=== PATIENT | male | born 1950 | race Caucasian/White ===

== ENCOUNTER 2020-03-11 10:49 | Inpatient (IN) ==
[2020-03-11] MEDS ORDERED: Naloxone 0.4 MG/ML INJ IVP PRN (13:06)
[2020-03-11] MEDS ORDERED: Ondansetron 4 MG/2 ML VIAL IVP PRN (13:06)
[2020-03-11] MEDS ORDERED: *HR* Phytonadione 5 MG TABLET PO ONE (14:25)
[2020-03-11] MEDS ORDERED: Dextrose Gel 15 GM/37.5 ML TUBE PO PRN ×2 (14:26)
[2020-03-11] MEDS ORDERED: *HR* Dextrose 50 % in Water (Vial) 50 ML VIAL IVP PRN (14:26)
[2020-03-11] MEDS ORDERED: D5% in Water 1,000 ML IVC PRN (14:26)
[2020-03-11] MEDS: *HR* Amiodarone 200 MG TABLET PO SCH (15:14)
[2020-03-11] MEDS: cefTRIAXone 1,000 MG in Water for inj. (sterile) 10 ML IVP SCH (15:14)
[2020-03-11] MEDS: Insulin LISPRO 300 UNITS/3 ML VIAL SUBQ SCH (18:22)
[2020-03-11] MEDS: Furosemide 40 MG/4 ML VIAL IVP SCH (20:24)
[2020-03-12 01:47] LABS: INR 4.1
[2020-03-12 01:49] LABS: Prothrombin Time 45.7 Seconds (9.4-12.1)
[2020-03-12 02:06] LABS: BUN/Creatinine Ratio 25 (6-26); Blood Urea Nitrogen 23 mg/dL (8-23); Calcium 8.2 mg/dL (8.6-10.3); Carbon Dioxide 38 mEq/L (23-29); Chloride 97 mEq/L (98-107); Glucose 80 mg/dL (70-105); Magnesium 2.2 mg/dL (1.6-2.6); Osmolality,Calculated 293 (280-300); Phosphorous 3.5 mg/dL (2.7-4.5); Potassium 4.5 mEq/L (3.5-5.1); Sodium 140 mEq/L (136-145); eGFR For African Americans > 60 (> 60); eGFR For Non-African Americans > 60 (> 60)
[2020-03-12 03:17] LABS: Basophils % 0.2 %; Eosinophils # 0.2 K/mcL (0.0-0.6); Eosinophils % 2.1 %; Hematocrit 44.8 % (37.5-50.1); Immature Granulocytes % 1.8 % (0-4); Lymphocytes # 0.6 K/mcL (0.6-4.6); Lymphocytes % 7.2 %; Mean Corpuscular HGB Conc 31.3 g/dL (31.6-35.5); Mean Corpuscular Volume 102.5 fL (83.0-100.0); Mean Platelet Volume 10.2 fL (9.4-12.4); Monocytes # 0.5 K/mcL (0.0-1.3); Monocytes % 6.2 %; Platelet Count 121 K/mcL (140-400); Red Blood Count 4.37 M/mcL (4.19-5.50); Red Cell Distribution Width 15.2 % (11.5-14.5); Segmented Neutrophils % 82.5 %; White Blood Count 8.5 K/mcL (4.3-11.1)
[2020-03-12] MEDS: Insulin LISPRO 300 UNITS/3 ML VIAL SUBQ SCH ×3 (08:06→17:01)
[2020-03-12] MEDS: *HR* Amiodarone 200 MG TABLET PO SCH (08:10)
[2020-03-12] MEDS: Furosemide 40 MG/4 ML VIAL IVP SCH ×2 (08:10→21:10)
[2020-03-12] MEDS: cefTRIAXone 1,000 MG in Water for inj. (sterile) 10 ML IVP SCH (08:11)
[2020-03-12] MEDS: lisinopriL 20 MG TABLET PO SCH (13:06)
[2020-03-12] MEDS: Levalbuterol Neb 0.63 MG/3 ML IH SCH ×2 (15:48→22:43)
[2020-03-12] MEDS: Famotidine 20 MG TABLET PO SCH (16:59)
[2020-03-12] MEDS ORDERED: Warfarin perPT PO PRN (18:00)
[2020-03-12] MEDS: Budesonide/Formoterol 160/4.5 1 PUFF INH IH SCH (22:43)
[2020-03-13] MEDS: Levalbuterol Neb 0.63 MG/3 ML IH SCH ×4 (03:17→22:30)
[2020-03-13 05:41] LABS: Basophils % 0.2 %; Red Cell Distribution Width 15.1 % (11.5-14.5)
[2020-03-13 05:43] LABS: Eosinophils # 0.1 K/mcL (0.0-0.6); Eosinophils % 1.6 %; Hematocrit 45.1 % (37.5-50.1); Hemoglobin 13.7 g/dL (12.9-16.9); Immature Granulocytes % 1.6 % (0-4); Immature Platelets 5.1 % (1.1-6.1); Lymphocytes # 0.5 K/mcL (0.6-4.6); Lymphocytes % 6.1 %; Mean Corpuscular HGB Conc 30.4 g/dL (31.6-35.5); Mean Corpuscular Hemoglobin 30.7 pg (28.0-33.3); Mean Corpuscular Volume 101.1 fL (83.0-100.0); Mean Platelet Volume 10.1 fL (9.4-12.4); Monocytes # 0.6 K/mcL (0.0-1.3); Monocytes % 6.6 %; Neutrophils # 7.3 K/mcL (1.6-8.9); Platelet Count 118 K/mcL (140-400); Red Blood Count 4.46 M/mcL (4.19-5.50); Segmented Neutrophils % 83.9 %; White Blood Count 8.7 K/mcL (4.3-11.1)
[2020-03-13 05:48] LABS: INR 1.6; Prothrombin Time 17.8 Seconds (9.4-12.1)
[2020-03-13 06:10] LABS: BUN/Creatinine Ratio 22 (6-26); Blood Urea Nitrogen 22 mg/dL (8-23); Calcium 8.4 mg/dL (8.6-10.3); Carbon Dioxide 40 mEq/L (23-29); Chloride 94 mEq/L (98-107); Glucose 167 mg/dL (70-105); Osmolality,Calculated 293 (280-300); Potassium 4.4 mEq/L (3.5-5.1); Sodium 138 mEq/L (136-145); eGFR For African Americans > 60 (> 60); eGFR For Non-African Americans > 60 (> 60)
[2020-03-13] MEDS: Furosemide 40 MG/4 ML VIAL IVP SCH ×2 (07:23→20:18)
[2020-03-13] MEDS: *HR* Amiodarone 200 MG TABLET PO SCH (07:25)
[2020-03-13] MEDS: lisinopriL 20 MG TABLET PO SCH (07:25)
[2020-03-13] MEDS: Insulin LISPRO 300 UNITS/3 ML VIAL SUBQ SCH ×3 (07:25→16:42)
[2020-03-13] MEDS: Famotidine 20 MG TABLET PO SCH ×2 (07:25→16:42)
[2020-03-13] MEDS: Aspirin 81 MG TAB.CHEW PO SCH (07:25)
[2020-03-13] MEDS: *HR* Enoxaparin 100 MG/ML SYRINGE SQ SCH ×2 (09:15→17:27)
[2020-03-13] MEDS: Tiotropium 10 INH DOSE IH SCH (10:17)
[2020-03-13] MEDS: Budesonide/Formoterol 160/4.5 1 PUFF INH IH SCH ×2 (10:18→22:30)
[2020-03-13] MEDS ORDERED: *HR* Warfarin 2.5 MG TABLET PO ONE (18:00)
[2020-03-14] MEDS: Levalbuterol Neb 0.63 MG/3 ML IH SCH ×4 (03:43→21:16)
[2020-03-14] MEDS: *HR* Enoxaparin 100 MG/ML SYRINGE SQ SCH ×2 (05:35→17:37)
[2020-03-14 05:46] LABS: Basophils % 0.3 %; Red Blood Count 4.52 M/mcL (4.19-5.50)
[2020-03-14 05:49] LABS: Eosinophils # 0.1 K/mcL (0.0-0.6); Eosinophils % 1.8 %; Hematocrit 45.9 % (37.5-50.1); Immature Granulocytes % 2.5 % (0-4); Immature Platelets 4.8 % (1.1-6.1); Lymphocytes # 0.6 K/mcL (0.6-4.6); Lymphocytes % 8.2 %; Mean Corpuscular HGB Conc 30.5 g/dL (31.6-35.5); Mean Corpuscular Volume 101.5 fL (83.0-100.0); Mean Platelet Volume 10.1 fL (9.4-12.4); Monocytes # 0.5 K/mcL (0.0-1.3); Monocytes % 6.8 %; Neutrophils # 5.7 K/mcL (1.6-8.9); Platelet Count 116 K/mcL (140-400); Red Cell Distribution Width 15.2 % (11.5-14.5); Segmented Neutrophils % 80.4 %; White Blood Count 7.1 K/mcL (4.3-11.1)
[2020-03-14 05:55] LABS: INR 1.5; Prothrombin Time 16.6 Seconds (9.4-12.1)
[2020-03-14 06:03] LABS: VBG HCO3 43 mEq/L (21-27); VBG PCO2 81 mmHg (41-51); VBG PH 7.33 pH Units (7.32-7.42); VBG PO2 39 mmHg (25-50)
[2020-03-14 06:13] LABS: BUN/Creatinine Ratio 17 (6-26); Blood Urea Nitrogen 17 mg/dL (8-23); Carbon Dioxide 42 mEq/L (23-29); Chloride 97 mEq/L (98-107); Glucose 146 mg/dL (70-105); Osmolality,Calculated 296 (280-300); Potassium 4.8 mEq/L (3.5-5.1); Sodium 141 mEq/L (136-145); eGFR For African Americans > 60 (> 60); eGFR For Non-African Americans > 60 (> 60)
[2020-03-14] MEDS: Insulin LISPRO 300 UNITS/3 ML VIAL SUBQ SCH ×3 (07:30→17:37)
[2020-03-14] MEDS: Aspirin 81 MG TAB.CHEW PO SCH (07:56)
[2020-03-14] MEDS: Famotidine 20 MG TABLET PO SCH ×2 (07:56→17:36)
[2020-03-14] MEDS: lisinopriL 20 MG TABLET PO SCH (07:56)
[2020-03-14] MEDS: *HR* Amiodarone 200 MG TABLET PO SCH (07:56)
[2020-03-14] MEDS: Furosemide 40 MG/4 ML VIAL IVP SCH ×2 (07:57→19:57)
[2020-03-14] MEDS: Budesonide/Formoterol 160/4.5 1 PUFF INH IH SCH ×2 (11:19→21:16)
[2020-03-14] MEDS: Tiotropium 10 INH DOSE IH SCH (11:20)
[2020-03-14] MEDS ORDERED: acetaZOLAMIDE 250 MG TABLET PO ONE (12:48)
[2020-03-14] MEDS ORDERED: *HR* Warfarin 2.5 MG TABLET PO ONE (18:00)
[2020-03-15 03:13] LABS: VBG HCO3 35 mEq/L (21-27); VBG PCO2 69 mmHg (41-51); VBG PH 7.31 pH Units (7.32-7.42); VBG PO2 52 mmHg (25-50)
[2020-03-15 03:17] LABS: Mean Corpuscular Hemoglobin 32.5 pg (28.0-33.3); Mean Corpuscular Volume 102.4 fL (83.0-100.0)
[2020-03-15 03:19] LABS: Hematocrit 43.5 % (37.5-50.1); Hemoglobin 13.8 g/dL (12.9-16.9); INR 1.6; Mean Corpuscular HGB Conc 31.7 g/dL (31.6-35.5); Prothrombin Time 18.7 Seconds (9.4-12.1); Red Blood Count 4.25 M/mcL (4.19-5.50); Red Cell Distribution Width 15.1 % (11.5-14.5); White Blood Count 6.4 K/mcL (4.3-11.1)
[2020-03-15 03:37] LABS: BUN/Creatinine Ratio 20 (6-26); Blood Urea Nitrogen 18 mg/dL (8-23); Calcium 8.3 mg/dL (8.6-10.3); Carbon Dioxide 36 mEq/L (23-29); Chloride 99 mEq/L (98-107); Glucose 208 mg/dL (70-105); Osmolality,Calculated 292 (280-300); Potassium 4.3 mEq/L (3.5-5.1); Sodium 137 mEq/L (136-145); eGFR For African Americans > 60 (> 60); eGFR For Non-African Americans > 60 (> 60)
[2020-03-15] MEDS: Levalbuterol Neb 0.63 MG/3 ML IH SCH ×4 (03:52→22:38)
[2020-03-15 04:22] LABS: ABG Base Excess 7 mEq/L (-2 to 3); ABG HCO3 36 mEq/L (21-27); ABG Oxygen Saturation 88 % (95-98); ABG PCO2 67 mmHg (35-45); ABG PH 7.34 pH Units (7.32-7.45); ABG PO2 60 mmHg (85-104); ABG TCO2 38 mEq/L (20-26)
[2020-03-15] MEDS: *HR* Enoxaparin 100 MG/ML SYRINGE SQ SCH ×2 (06:36→18:01)
[2020-03-15] MEDS: *HR* Amiodarone 200 MG TABLET PO SCH (08:07)
[2020-03-15] MEDS: Furosemide 40 MG/4 ML VIAL IVP SCH ×2 (08:07→21:02)
[2020-03-15] MEDS: lisinopriL 20 MG TABLET PO SCH (08:07)
[2020-03-15] MEDS: Famotidine 20 MG TABLET PO SCH ×2 (08:08→18:05)
[2020-03-15] MEDS: Aspirin 81 MG TAB.CHEW PO SCH (08:08)
[2020-03-15] MEDS: Insulin LISPRO 300 UNITS/3 ML VIAL SUBQ SCH ×3 (08:18→18:07)
[2020-03-15] MEDS: Budesonide/Formoterol 160/4.5 1 PUFF INH IH SCH ×2 (10:33→22:38)
[2020-03-15] MEDS: Tiotropium 10 INH DOSE IH SCH (10:34)
[2020-03-15] MEDS ORDERED: DiphenhydraMINE CREAM 28.4 GM TUBE TP PRN (18:00)
[2020-03-15] MEDS ORDERED: *HR* Warfarin 5 MG TABLET PO ONE (18:00)
[2020-03-16] MEDS: Levalbuterol Neb 0.63 MG/3 ML IH SCH ×4 (03:29→22:20)
[2020-03-16] MEDS: *HR* Enoxaparin 100 MG/ML SYRINGE SQ SCH ×2 (05:57→17:36)
[2020-03-16 06:00] LABS: Red Cell Distribution Width 15.3 % (11.5-14.5)
[2020-03-16 06:01] LABS: Hematocrit 44.9 % (37.5-50.1); Hemoglobin 13.4 g/dL (12.9-16.9); INR 2.1; Immature Platelets 3.9 % (1.1-6.1); Mean Corpuscular HGB Conc 29.8 g/dL (31.6-35.5); Mean Corpuscular Hemoglobin 30.9 pg (28.0-33.3); Mean Corpuscular Volume 103.7 fL (83.0-100.0); Mean Platelet Volume 10.2 fL (9.4-12.4); Prothrombin Time 23.6 Seconds (9.4-12.1); Red Blood Count 4.33 M/mcL (4.19-5.50); White Blood Count 6.7 K/mcL (4.3-11.1)
[2020-03-16 06:24] LABS: BUN/Creatinine Ratio 18 (6-26); Blood Urea Nitrogen 17 mg/dL (8-23); Calcium 8.5 mg/dL (8.6-10.3); Carbon Dioxide 34 mEq/L (23-29); Chloride 100 mEq/L (98-107); Glucose 171 mg/dL (70-105); Osmolality,Calculated 290 (280-300); Potassium 4.4 mEq/L (3.5-5.1); Sodium 137 mEq/L (136-145); eGFR For African Americans > 60 (> 60); eGFR For Non-African Americans > 60 (> 60)
[2020-03-16] MEDS: Tiotropium 10 INH DOSE IH SCH (09:07)
[2020-03-16] MEDS: Budesonide/Formoterol 160/4.5 1 PUFF INH IH SCH ×2 (09:07→22:20)
[2020-03-16] MEDS: *HR* Amiodarone 200 MG TABLET PO SCH (09:18)
[2020-03-16] MEDS: Furosemide 40 MG/4 ML VIAL IVP SCH ×2 (09:18→21:16)
[2020-03-16] MEDS: lisinopriL 20 MG TABLET PO SCH (09:19)
[2020-03-16] MEDS: Famotidine 20 MG TABLET PO SCH ×2 (09:19→17:36)
[2020-03-16] MEDS: Aspirin 81 MG TAB.CHEW PO SCH (09:19)
[2020-03-16] MEDS: Insulin LISPRO 300 UNITS/3 ML VIAL SUBQ SCH ×3 (09:26→17:36)
[2020-03-16] MEDS ORDERED: *HR* Warfarin 2.5 MG TABLET PO ONE (18:00)
[2020-03-17 02:23] LABS: Hematocrit 43.5 % (37.5-50.1); Hemoglobin 13.4 g/dL (12.9-16.9); INR 3.1; Mean Corpuscular HGB Conc 30.8 g/dL (31.6-35.5); Mean Corpuscular Hemoglobin 31.2 pg (28.0-33.3); Mean Corpuscular Volume 101.2 fL (83.0-100.0); Mean Platelet Volume 10.6 fL (9.4-12.4); Platelet Count 102 K/mcL (140-400); Prothrombin Time 34.9 Seconds (9.4-12.1); Red Cell Distribution Width 15.4 % (11.5-14.5)
[2020-03-17 02:36] LABS: BUN/Creatinine Ratio 19 (6-26); Blood Urea Nitrogen 27 mg/dL (8-23); Calcium 8.5 mg/dL (8.6-10.3); Carbon Dioxide 33 mEq/L (23-29); Chloride 99 mEq/L (98-107); Glucose 198 mg/dL (70-105); Osmolality,Calculated 295 (280-300); Potassium 4.2 mEq/L (3.5-5.1); Sodium 137 mEq/L (136-145); eGFR For African Americans > 60 (> 60); eGFR For Non-African Americans 51 (> 60)
[2020-03-17] MEDS: Levalbuterol Neb 0.63 MG/3 ML IH SCH ×4 (03:30→22:38)
[2020-03-17] MEDS: *HR* Enoxaparin 100 MG/ML SYRINGE SQ SCH (05:54)
[2020-03-17] MEDS: Furosemide 40 MG/4 ML VIAL IVP SCH (07:37)
[2020-03-17] MEDS: Aspirin 81 MG TAB.CHEW PO SCH (07:38)
[2020-03-17] MEDS: Famotidine 20 MG TABLET PO SCH ×2 (07:38→16:28)
[2020-03-17] MEDS: *HR* Amiodarone 200 MG TABLET PO SCH (07:38)
[2020-03-17] MEDS: lisinopriL 20 MG TABLET PO SCH (07:39)
[2020-03-17] MEDS: Insulin LISPRO 300 UNITS/3 ML VIAL SUBQ SCH ×3 (07:40→16:18)
[2020-03-17] MEDS: Tiotropium 10 INH DOSE IH SCH (10:26)
[2020-03-17] MEDS: Budesonide/Formoterol 160/4.5 1 PUFF INH IH SCH ×2 (10:27→22:38)
[2020-03-17] MEDS ORDERED: 0.9 % Sodium Chloride 250 ML IVC SCH (17:15)
[2020-03-17] MEDS ORDERED: *HR* Warfarin 2.5 MG TABLET PO ONE (18:00)
[2020-03-18] MEDS: Levalbuterol Neb 0.63 MG/3 ML IH SCH ×2 (04:13→10:11)
[2020-03-18 06:08] LABS: Hematocrit 45.3 % (37.5-50.1); Mean Corpuscular HGB Conc 30.9 g/dL (31.6-35.5); Mean Corpuscular Hemoglobin 31.8 pg (28.0-33.3); Mean Platelet Volume 9.8 fL (9.4-12.4); Red Cell Distribution Width 15.4 % (11.5-14.5); White Blood Count 5.6 K/mcL (4.3-11.1)
[2020-03-18 06:09] LABS: Platelet Count 96 K/mcL (140-400)
[2020-03-18 06:13] LABS: INR 3.1; Prothrombin Time 35.1 Seconds (9.4-12.1)
[2020-03-18 06:29] LABS: BUN/Creatinine Ratio 23 (6-26); Blood Urea Nitrogen 19 mg/dL (8-23); Calcium 8.9 mg/dL (8.6-10.3); Carbon Dioxide 34 mEq/L (23-29); Chloride 102 mEq/L (98-107); Glucose 152 mg/dL (70-105); Osmolality,Calculated 295 (280-300); Potassium 4.4 mEq/L (3.5-5.1); Sodium 140 mEq/L (136-145); eGFR For African Americans > 60 (> 60); eGFR For Non-African Americans > 60 (> 60)
[2020-03-18 07:37] VITALS: BP 112/79
[2020-03-18] MEDS: Tiotropium 10 INH DOSE IH SCH (08:19)
[2020-03-18] MEDS: Budesonide/Formoterol 160/4.5 1 PUFF INH IH SCH (08:20)
[2020-03-18] MEDS: *HR* Amiodarone 200 MG TABLET PO SCH (08:31)
[2020-03-18] MEDS: Famotidine 20 MG TABLET PO SCH (08:31)
[2020-03-18] MEDS: Insulin LISPRO 300 UNITS/3 ML VIAL SUBQ SCH (08:31)
[2020-03-18] MEDS: Aspirin 81 MG TAB.CHEW PO SCH (08:32)
[2020-03-18] MEDS ORDERED: lisinopriL 5 MG TABLET PO SCH (09:00)
[2020-03-18] MEDS ORDERED: *HR* Warfarin 2.5 MG TABLET PO ONE (18:00)
== END 2020-03-18 12:40 | disposition home or self-care (01) | DRG 280 ==
LOC: 3BNU → SUATTDRO 12:13
PROVIDERS: ADMIT Internal Medicine; ATTEND Internal Medicine

== ENCOUNTER 2020-07-19 14:32 | Observation (INO) ==
[2020-07-19] MEDS ORDERED: Ipratropium/Albuterol Neb 3 ML IH ONE (15:44)
[2020-07-19] MEDS ORDERED: methylPREDNISolone 125 MG/2 ML VIAL IVP ONE (15:44)
[2020-07-19 15:48] LABS: Basophils % 0.3 %; Eosinophils # 0.1 K/mcL (0.0-0.6); Hematocrit 47.4 % (37.5-50.1); Hemoglobin 14.7 g/dL (12.9-16.9); Immature Granulocytes % 0.9 % (0-4); Lymphocytes # 0.7 K/mcL (0.6-4.6); Lymphocytes % 6.6 %; Mean Corpuscular Hemoglobin 29.3 pg (28.0-33.3); Mean Corpuscular Volume 94.6 fL (83.0-100.0); Mean Platelet Volume 9.4 fL (9.4-12.4); Monocytes # 0.7 K/mcL (0.0-1.3); Monocytes % 7.2 %; Neutrophils # 8.3 K/mcL (1.6-8.9); Platelet Count 169 K/mcL (140-400); Red Blood Count 5.01 M/mcL (4.19-5.50); White Blood Count 9.9 K/mcL (4.3-11.1)
[2020-07-19 16:10] LABS: BUN/Creatinine Ratio 16 (6-26); Blood Urea Nitrogen 14 mg/dL (8-23); Calcium 9.2 mg/dL (8.6-10.3); Carbon Dioxide 36 mEq/L (23-29); Chloride 98 mEq/L (98-107); Glucose 121 mg/dL (70-105); Osmolality,Calculated 288 (280-300); Sodium 138 mEq/L (136-145); Troponin I < 0.03 ng/mL (< 0.04); eGFR For African Americans > 60 (> 60); eGFR For Non-African Americans > 60 (> 60)
[2020-07-19] MEDS ORDERED: Furosemide 40 MG/4 ML VIAL IVP ONE (16:44)
[2020-07-19] MEDS ORDERED: Warfarin perPT PO PRN (18:00)
[2020-07-19] MEDS ORDERED: Acetaminophen 325 MG TABLET PO PRN (18:01)
[2020-07-19] MEDS ORDERED: Ondansetron 4 MG/2 ML VIAL IVP PRN (18:01)
[2020-07-19] MEDS ORDERED: Naloxone 0.4 MG/ML INJ IVP PRN (18:01)
[2020-07-19] MEDS ORDERED: Perflutren Lipid Microsphere 1.3 ML in 0.9 % Sodium Chloride 8.7 ML IVP PRN (18:04)
[2020-07-19] MEDS ORDERED: Ipratropium/Albuterol Neb 3 ML IH PRN (19:17)
[2020-07-19] MEDS ORDERED: Dextrose Gel 15 GM/37.5 ML TUBE PO PRN ×2 (19:36)
[2020-07-19] MEDS ORDERED: D5% in Water 1,000 ML IVC PRN (19:36)
[2020-07-19] MEDS ORDERED: *HR* Dextrose 50 % in Water (Vial) 50 ML VIAL IVP PRN (19:36)
[2020-07-19 19:49] LABS: INR 3.4; Prothrombin Time 38.5 Seconds (9.4-12.1)
[2020-07-19] MEDS: Nicotine 21 MG PATCH.TD24 TD SCH (20:28)
[2020-07-19] MEDS: Levalbuterol Neb 0.63 MG/3 ML IH SCH (21:36)
[2020-07-19] MEDS ORDERED: Insulin LISPRO 300 UNITS/3 ML VIAL SUBQ SCH (21:45)
[2020-07-20 01:34] LABS: Basophils % 0.1 %; Eosinophils % 0.1 %; Hematocrit 45.8 % (37.5-50.1); Hemoglobin 14.4 g/dL (12.9-16.9); Immature Granulocytes % 0.8 % (0-4); Lymphocytes # 0.2 K/mcL (0.6-4.6); Lymphocytes % 3.3 %; Mean Corpuscular HGB Conc 31.4 g/dL (31.6-35.5); Mean Corpuscular Hemoglobin 29.5 pg (28.0-33.3); Mean Corpuscular Volume 93.9 fL (83.0-100.0); Mean Platelet Volume 9.9 fL (9.4-12.4); Monocytes # 0.1 K/mcL (0.0-1.3); Monocytes % 0.8 %; Neutrophils # 6.8 K/mcL (1.6-8.9); Platelet Count 161 K/mcL (140-400); Red Blood Count 4.88 M/mcL (4.19-5.50); Segmented Neutrophils % 94.9 %; White Blood Count 7.2 K/mcL (4.3-11.1)
[2020-07-20 01:47] LABS: INR 3.1; Prothrombin Time 34.9 Seconds (9.4-12.1)
[2020-07-20 01:51] LABS: BUN/Creatinine Ratio 19 (6-26); Blood Urea Nitrogen 19 mg/dL (8-23); Carbon Dioxide 36 mEq/L (23-29); Chloride 94 mEq/L (98-107); Glucose 378 mg/dL (70-105); Osmolality,Calculated 302 (280-300); Sodium 137 mEq/L (136-145); Troponin I < 0.03 ng/mL (< 0.04); eGFR For African Americans > 60 (> 60); eGFR For Non-African Americans > 60 (> 60)
[2020-07-20] MEDS: Levalbuterol Neb 0.63 MG/3 ML IH SCH ×4 (04:14→22:41)
[2020-07-20] MEDS: predniSONE 20 MG TABLET PO SCH (08:20)
[2020-07-20] MEDS: Insulin LISPRO 300 UNITS/3 ML VIAL SUBQ SCH ×3 (08:21→17:06)
[2020-07-20] MEDS: Furosemide 40 MG/4 ML VIAL IVP SCH (08:23)
[2020-07-20] MEDS: Spironolactone 25 MG TABLET PO SCH (13:34)
[2020-07-20] MEDS: Aspirin Enteric Coated 81 MG Tablet PO SCH (13:34)
[2020-07-20] MEDS ORDERED: traZODone 50 MG TABLET PO PRN (15:04)
[2020-07-20] MEDS ORDERED: *HR* HYDROcodone/Acet 7.5/325 mg TABLET PO PRN (15:04)
[2020-07-20] MEDS: Ipratropium Neb 0.5 MG NEBULIZER IH SCH ×2 (15:42→22:41)
[2020-07-20] MEDS ORDERED: *HR* Warfarin 2.5 MG TABLET PO ONE (18:00)
[2020-07-20] MEDS: Nicotine 21 MG PATCH.TD24 TD SCH (19:44)
[2020-07-20] MEDS ORDERED: Insulin DETEMIR 100 UNIT/ML X5UNITS SUBQ SCH (21:00)
[2020-07-20] MEDS: Sacubitril/Valsartan 24/26 MG 1 TABLET PO SCH (21:04)
[2020-07-20] MEDS: Metoprolol XL (24 HR) Succ 50 MG TAB.ER.24H PO SCH (21:04)
[2020-07-21] MEDS: Levalbuterol Neb 0.63 MG/3 ML IH SCH ×2 (04:07→08:05)
[2020-07-21] MEDS: Ipratropium Neb 0.5 MG NEBULIZER IH SCH ×2 (04:07→08:05)
[2020-07-21 05:44] VITALS: BP 101/69
[2020-07-21] MEDS: Furosemide 40 MG/4 ML VIAL IVP SCH (08:22)
[2020-07-21] MEDS: Insulin LISPRO 300 UNITS/3 ML VIAL SUBQ SCH (08:23)
[2020-07-21] MEDS: Metoprolol XL (24 HR) Succ 50 MG TAB.ER.24H PO SCH (08:23)
[2020-07-21] MEDS: Aspirin Enteric Coated 81 MG Tablet PO SCH (08:23)
[2020-07-21] MEDS: Sacubitril/Valsartan 24/26 MG 1 TABLET PO SCH (08:23)
[2020-07-21] MEDS: Spironolactone 25 MG TABLET PO SCH (08:23)
[2020-07-21] MEDS: predniSONE 20 MG TABLET PO SCH (08:23)
[2020-07-21 08:29] LABS: Basophils % 0.1 %; Eosinophils % 0.1 %; Hematocrit 44.2 % (37.5-50.1); Immature Granulocytes % 0.8 % (0-4); Lymphocytes # 0.7 K/mcL (0.6-4.6); Lymphocytes % 4.6 %; Mean Corpuscular HGB Conc 31.7 g/dL (31.6-35.5); Mean Corpuscular Hemoglobin 29.9 pg (28.0-33.3); Mean Corpuscular Volume 94.2 fL (83.0-100.0); Mean Platelet Volume 10.2 fL (9.4-12.4); Monocytes # 0.9 K/mcL (0.0-1.3); Monocytes % 5.9 %; Platelet Count 162 K/mcL (140-400); Red Blood Count 4.69 M/mcL (4.19-5.50); Red Cell Distribution Width 16.9 % (11.5-14.5); Segmented Neutrophils % 88.5 %
[2020-07-21 08:36] LABS: Neutrophils # 13.5 K/mcL (1.6-8.9); White Blood Count 15.2 K/mcL (4.3-11.1)
[2020-07-21] MEDS ORDERED: BETAMETHASONE DIPROPIONATE TP SCH (09:00)
[2020-07-21 09:21] LABS: BUN/Creatinine Ratio 27 (6-26); Blood Urea Nitrogen 25 mg/dL (8-23); Calcium 8.8 mg/dL (8.6-10.3); Carbon Dioxide 33 mEq/L (23-29); Chloride 98 mEq/L (98-107); Glucose 162 mg/dL (70-105); Magnesium 2.1 mg/dL (1.6-2.6); Osmolality,Calculated 290 (280-300); Potassium 4.5 mEq/L (3.5-5.1); Sodium 136 mEq/L (136-145); eGFR For African Americans > 60 (> 60); eGFR For Non-African Americans > 60 (> 60)
[2020-07-21 09:23] LABS: INR 3.1; Prothrombin Time 34.4 Seconds (9.4-12.1)
[2020-07-21 09:33] LABS: Thyroid Stimulating Hormone 0.882 mcIU/mL (0.340-5.600)
[2020-07-21 12:10] LABS: Estimated Average Glucose 171 mg/dl; Hemoglobin A1C 7.6 %
[2020-07-21] MEDS ORDERED: FluocinoNIDE 0.05% CRM 15 GM TUBE TP SCH (21:00)
== END 2020-07-21 10:27 | disposition home or self-care (01) ==
LOC: EMEROOARM 14:32 → 3NENU 14:32 → SUATTDRO 18:47 → 3NENU 19:52
PROVIDERS: ADMIT Internal Medicine; ATTEND Pharmacist

== ENCOUNTER 2021-01-31 20:13 | Inpatient (IN) ==
[2021-01-31] MEDS ORDERED: Naloxone 0.4 MG/ML INJ IVP PRN (22:04)
[2021-01-31] MEDS ORDERED: Ondansetron 4 MG/2 ML VIAL IVP PRN (22:04)
[2021-01-31] MEDS ORDERED: Acetaminophen 325 MG TABLET PO PRN (22:04)
[2021-02-01 01:11] LABS: Hematocrit 39.7 % (37.5-50.1); Hemoglobin 13.1 g/dL (12.9-16.9); Mean Corpuscular Hemoglobin 32.3 pg (28.0-33.3); Mean Corpuscular Volume 97.8 fL (83.0-100.0); Mean Platelet Volume 9.7 fL (9.4-12.4); Platelet Count 144 K/mcL (140-400); Red Blood Count 4.06 M/mcL (4.19-5.50); Red Cell Distribution Width 14.6 % (11.5-14.5); White Blood Count 7.5 K/mcL (4.3-11.1)
[2021-02-01 01:18] LABS: INR 2.4; Prothrombin Time 26.7 Seconds (9.4-12.1)
[2021-02-01 01:28] LABS: BUN/Creatinine Ratio 21 (6-26); Blood Urea Nitrogen 21 mg/dL (8-23); Calcium 8.6 mg/dL (8.6-10.3); Carbon Dioxide 35 mEq/L (23-29); Chloride 97 mEq/L (98-107); Glucose 224 mg/dL (70-105); Osmolality,Calculated 296 (280-300); Potassium 3.6 mEq/L (3.5-5.1); Sodium 138 mEq/L (136-145); eGFR For African Americans > 60 (> 60); eGFR For Non-African Americans > 60 (> 60)
[2021-02-01] MEDS ORDERED: Furosemide 40 MG/4 ML VIAL IVP SCH (09:00)
[2021-02-01] MEDS ORDERED: D5% in Water 1,000 ML IVC PRN (11:44)
[2021-02-01] MEDS ORDERED: *HR* Dextrose 50 % in Water (Syg) 50 ML SYRINGE IVP PRN (11:44)
[2021-02-01] MEDS ORDERED: Dextrose Gel 15 GM/37.5 ML TUBE PO PRN ×2 (11:44)
[2021-02-01] MEDS: Metoprolol XL (24 HR) Succ 50 MG TAB.ER.24H PO SCH (12:54)
[2021-02-01] MEDS: Insulin LISPRO 300 UNITS/3 ML VIAL SUBQ SCH (16:38)
[2021-02-01] MEDS ORDERED: *HR* Warfarin 2.5 MG TABLET PO ONE (18:00)
[2021-02-01] MEDS ORDERED: Warfarin perPT PO PRN (18:00)
[2021-02-01] MEDS: Furosemide 40 MG/4 ML VIAL IVP SCH ×2 (18:02→18:14)
[2021-02-01] MEDS: Levalbuterol Neb 1.25 MG/3 ML IH SCH (21:25)
[2021-02-02 03:56] LABS: Basophils % 0.5 %; Eosinophils # 0.1 K/mcL (0.0-0.6); Eosinophils % 1.8 %; Hematocrit 40.9 % (37.5-50.1); Hemoglobin 13.2 g/dL (12.9-16.9); Immature Granulocytes % 1.3 % (0-4); Lymphocytes # 0.6 K/mcL (0.6-4.6); Lymphocytes % 9.3 %; Mean Corpuscular HGB Conc 32.3 g/dL (31.6-35.5); Mean Corpuscular Hemoglobin 31.9 pg (28.0-33.3); Mean Corpuscular Volume 98.8 fL (83.0-100.0); Mean Platelet Volume 9.7 fL (9.4-12.4); Monocytes # 0.6 K/mcL (0.0-1.3); Monocytes % 9.8 %; Neutrophils # 4.7 K/mcL (1.6-8.9); Platelet Count 148 K/mcL (140-400); Red Blood Count 4.14 M/mcL (4.19-5.50); Red Cell Distribution Width 14.6 % (11.5-14.5); Segmented Neutrophils % 77.3 %
[2021-02-02 04:05] LABS: INR 2.7; Prothrombin Time 29.7 Seconds (9.4-12.1)
[2021-02-02 04:07] LABS: Blood Urea Nitrogen 25 mg/dL (8-23); Carbon Dioxide 33 mEq/L (23-29); Chloride 97 mEq/L (98-107); Potassium 3.6 mEq/L (3.5-5.1); Sodium 135 mEq/L (136-145)
[2021-02-02 04:08] LABS: BUN/Creatinine Ratio 27 (6-26); Calcium 8.6 mg/dL (8.6-10.3); Glucose 129 mg/dL (70-105); Magnesium 1.9 mg/dL (1.6-2.6); Osmolality,Calculated 286 (280-300); eGFR For African Americans > 60 (> 60); eGFR For Non-African Americans > 60 (> 60)
[2021-02-02] MEDS: Furosemide 40 MG/4 ML VIAL IVP SCH ×2 (06:08→18:28)
[2021-02-02] MEDS: Metoprolol XL (24 HR) Succ 50 MG TAB.ER.24H PO SCH ×2 (09:26→20:05)
[2021-02-02] MEDS: Insulin LISPRO 300 UNITS/3 ML VIAL SUBQ SCH ×3 (09:27→18:31)
[2021-02-02] MEDS: Levalbuterol Neb 1.25 MG/3 ML IH SCH ×2 (10:27→19:42)
[2021-02-02] MEDS ORDERED: *HR* Warfarin 1 MG TABLET PO ONE (18:00)
[2021-02-03] MEDS: Furosemide 40 MG/4 ML VIAL IVP SCH ×2 (06:02→20:18)
[2021-02-03 09:55] LABS: Hematocrit 43.9 % (37.5-50.1); Hemoglobin 14.1 g/dL (12.9-16.9); Mean Corpuscular HGB Conc 32.1 g/dL (31.6-35.5); Mean Corpuscular Hemoglobin 31.8 pg (28.0-33.3); Mean Corpuscular Volume 98.9 fL (83.0-100.0); Mean Platelet Volume 9.5 fL (9.4-12.4); Platelet Count 176 K/mcL (140-400); Red Blood Count 4.44 M/mcL (4.19-5.50); Red Cell Distribution Width 14.9 % (11.5-14.5); White Blood Count 6.9 K/mcL (4.3-11.1)
[2021-02-03 10:04] LABS: INR 2.7; Prothrombin Time 30.4 Seconds (9.4-12.1)
[2021-02-03 10:16] LABS: BUN/Creatinine Ratio 23 (6-26); Blood Urea Nitrogen 27 mg/dL (8-23); Carbon Dioxide 38 mEq/L (23-29); Chloride 92 mEq/L (98-107); Glucose 220 mg/dL (70-105); Magnesium 1.9 mg/dL (1.6-2.6); Osmolality,Calculated 292 (280-300); Sodium 135 mEq/L (136-145); eGFR For African Americans > 60 (> 60); eGFR For Non-African Americans 60 (> 60)
[2021-02-03] MEDS: Levalbuterol Neb 1.25 MG/3 ML IH SCH ×2 (10:39→19:35)
[2021-02-03] MEDS: Insulin LISPRO 300 UNITS/3 ML VIAL SUBQ SCH ×3 (11:15→18:19)
[2021-02-03] MEDS: Metoprolol XL (24 HR) Succ 50 MG TAB.ER.24H PO SCH (11:16)
[2021-02-03] MEDS ORDERED: Metoprolol XL (24 HR) Succ 50 MG TAB.ER.24H PO ONE (16:07)
[2021-02-03] MEDS ORDERED: Albumin 25% 25gram/100mL 25 GM/100 ML IV.SOLN IVPB ONE (16:58)
[2021-02-03] MEDS ORDERED: 0.9 % Sodium Chloride 250 ML IVC ONE (16:59)
[2021-02-03] MEDS ORDERED: *HR* Warfarin 1 MG TABLET PO ONE (18:00)
[2021-02-03] MEDS ORDERED: Metoprolol XL (24 HR) Succ 50 MG TAB.ER.24H PO SCH (21:00)
[2021-02-04] MEDS ORDERED: *HR* Metoprolol 5 MG/5 ML VIAL IVP ONE (08:22)
[2021-02-04] MEDS: Metoprolol XL (24 HR) Succ 50 MG TAB.ER.24H PO SCH (08:48)
[2021-02-04] MEDS: Furosemide 40 MG/4 ML VIAL IVP SCH ×2 (08:49→23:00)
[2021-02-04] MEDS: Insulin LISPRO 300 UNITS/3 ML VIAL SUBQ SCH ×3 (09:00→16:55)
[2021-02-04 09:36] LABS: Basophils % 0.3 %; Eosinophils # 0.1 K/mcL (0.0-0.6); Hemoglobin 13.3 g/dL (12.9-16.9); Immature Granulocytes % 0.7 % (0-4); Lymphocytes # 0.3 K/mcL (0.6-4.6); Lymphocytes % 4.5 %; Mean Corpuscular HGB Conc 31.7 g/dL (31.6-35.5); Mean Corpuscular Hemoglobin 31.1 pg (28.0-33.3); Mean Corpuscular Volume 98.4 fL (83.0-100.0); Mean Platelet Volume 9.5 fL (9.4-12.4); Monocytes # 0.4 K/mcL (0.0-1.3); Monocytes % 6.4 %; Neutrophils # 5.8 K/mcL (1.6-8.9); Platelet Count 154 K/mcL (140-400); Red Blood Count 4.27 M/mcL (4.19-5.50); Red Cell Distribution Width 14.8 % (11.5-14.5); Segmented Neutrophils % 87.1 %; White Blood Count 6.7 K/mcL (4.3-11.1)
[2021-02-04 09:45] LABS: INR 2.4; Prothrombin Time 26.1 Seconds (9.4-12.1)
[2021-02-04] MEDS: Levalbuterol Neb 1.25 MG/3 ML IH SCH ×2 (09:47→20:22)
[2021-02-04 09:56] LABS: BUN/Creatinine Ratio 28 (6-26); Blood Urea Nitrogen 27 mg/dL (8-23); Calcium 8.9 mg/dL (8.6-10.3); Carbon Dioxide 35 mEq/L (23-29); Chloride 95 mEq/L (98-107); Glucose 261 mg/dL (70-105); Magnesium 1.9 mg/dL (1.6-2.6); Osmolality,Calculated 294 (280-300); Phosphorous 2.9 mg/dL (2.7-4.5); Potassium 4.1 mEq/L (3.5-5.1); Sodium 135 mEq/L (136-145); eGFR For African Americans > 60 (> 60); eGFR For Non-African Americans > 60 (> 60)
[2021-02-04] MEDS ORDERED: 0.9 % Sodium Chloride 250 ML IVC ONE (13:04)
[2021-02-04] MEDS ORDERED: Amiodarone Premix 150 MG/100 ML BAG IVPB ONE ×2 (13:15→16:30)
[2021-02-04] MEDS ORDERED: Amiodarone Premix 360 MG/200 ML BAG IVC ONE (13:15)
[2021-02-04] MEDS ORDERED: *HR* Warfarin 0.5 MG TABLET PO ONE (18:00)
[2021-02-04] MEDS: Amiodarone Premix 360 MG/200 ML BAG IVC SCH (23:47)
[2021-02-05] MEDS: Metoprolol XL (24 HR) Succ 50 MG TAB.ER.24H PO SCH ×4 (00:32→19:45)
[2021-02-05 05:56] LABS: Basophils % 0.5 %; Eosinophils % 0.2 %; Hematocrit 43.1 % (37.5-50.1); Hemoglobin 13.6 g/dL (12.9-16.9); Immature Granulocytes % 1.5 % (0-4); Lymphocytes # 0.6 K/mcL (0.6-4.6); Lymphocytes % 7.3 %; Mean Corpuscular HGB Conc 31.6 g/dL (31.6-35.5); Mean Corpuscular Hemoglobin 31.5 pg (28.0-33.3); Mean Corpuscular Volume 99.8 fL (83.0-100.0); Mean Platelet Volume 9.8 fL (9.4-12.4); Monocytes # 0.7 K/mcL (0.0-1.3); Monocytes % 8.6 %; Neutrophils # 6.9 K/mcL (1.6-8.9); Platelet Count 168 K/mcL (140-400); Red Blood Count 4.32 M/mcL (4.19-5.50); Red Cell Distribution Width 14.7 % (11.5-14.5); Segmented Neutrophils % 81.9 %; White Blood Count 8.4 K/mcL (4.3-11.1)
[2021-02-05 06:05] LABS: INR 2.7; Prothrombin Time 30.4 Seconds (9.4-12.1)
[2021-02-05 06:10] LABS: Calcium 8.9 mg/dL (8.6-10.3); Magnesium 2.1 mg/dL (1.6-2.6); Phosphorous 4.4 mg/dL (2.7-4.5); Potassium 4.6 mEq/L (3.5-5.1)
[2021-02-05] MEDS: Insulin LISPRO 300 UNITS/3 ML VIAL SUBQ SCH ×3 (08:58→16:51)
[2021-02-05] MEDS: Albumin 25% 25gram/100mL 25 GM/100 ML IV.SOLN IVC SCH ×4 (08:58→19:17)
[2021-02-05] MEDS ORDERED: Furosemide 20 MG/2 ML VIAL IVP SCH (09:00)
[2021-02-05] MEDS: Levalbuterol Neb 1.25 MG/3 ML IH SCH ×2 (09:09→20:17)
[2021-02-05] MEDS ORDERED: *HR* Warfarin 1 MG TABLET PO ONE (18:00)
[2021-02-05 18:46] LABS: Sodium, Urine 10.1 mEq/L
[2021-02-05 18:47] LABS: Bilirubin,Urine Small (Negative); Blood,Urine Negative (Negative); Clarity,Urine Clear (Clear); Color,Urine Dark-Yellow (Yellow); Glucose,Urine (UA) Normal (Normal); Hyaline Casts,Urine Few per lpf (None Seen); Ketones,Urine Negative (Negative); Leukocyte Esterase,Urine Negative (Negative); Mucus,Urine Few per lpf (None-Few); Nitrite,Urine Negative (Negative); PH,Urine 5.5 pH Units (5.0-8.0); Protein,Urine 70 mg/dL (Neg-Trace); RBC,Urine 0-3 per hpf (0-3); Specific Gravity,Urine 1.024 (1.010-1.025); Squamous Epithelial Cell,Urine Few per hpf (None-Few); WBC,Urine 0-3 per hpf (0-3)
[2021-02-05] MEDS ORDERED: Albumin 25% 25gram/100mL 25 GM/100 ML IV.SOLN ONE (19:16)
[2021-02-05] MEDS: Amiodarone Premix 360 MG/200 ML BAG IVC SCH (21:45)
[2021-02-05 22:34] LABS: Calcium 9.1 mg/dL (8.6-10.3); Magnesium 2.3 mg/dL (1.6-2.6); Phosphorous 6.7 mg/dL (2.7-4.5); Potassium 5.3 mEq/L (3.5-5.1)
[2021-02-06 02:33] LABS: Basophils % 0.4 %; Hematocrit 40.4 % (37.5-50.1); Hemoglobin 12.4 g/dL (12.9-16.9); Immature Granulocytes % 1.6 % (0-4); Lymphocytes # 0.5 K/mcL (0.6-4.6); Lymphocytes % 4.8 %; Mean Corpuscular HGB Conc 30.7 g/dL (31.6-35.5); Mean Corpuscular Hemoglobin 30.8 pg (28.0-33.3); Mean Corpuscular Volume 100.5 fL (83.0-100.0); Mean Platelet Volume 10.6 fL (9.4-12.4); Monocytes # 1.2 K/mcL (0.0-1.3); Monocytes % 11.5 %; Neutrophils # 8.6 K/mcL (1.6-8.9); Nucleated Red Blood Cells 0.2 /100 WBC (0); Platelet Count 118 K/mcL (140-400); Red Blood Count 4.02 M/mcL (4.19-5.50); Red Cell Distribution Width 14.9 % (11.5-14.5); Segmented Neutrophils % 81.7 %; White Blood Count 10.5 K/mcL (4.3-11.1)
[2021-02-06 02:52] LABS: Calcium 9.1 mg/dL (8.6-10.3); Magnesium 2.3 mg/dL (1.6-2.6); Potassium 5.5 mEq/L (3.5-5.1)
[2021-02-06 02:53] LABS: INR 4.7
[2021-02-06 05:56] LABS: INR 4.9; Prothrombin Time 53.6 Seconds (9.4-12.1)
[2021-02-06] MEDS ORDERED: SODIUM ZIRCONIUM CYCLOSILICATE 5 GM POWD.PACK PO ONE (09:00)
[2021-02-06] MEDS ORDERED: Insulin Human Regular 10 UNIT in 0.9 % Sodium Chloride 10 ML IV ONE ×2 (09:00→17:23)
[2021-02-06] MEDS ORDERED: *HR* Dextrose 50 % in Water (Vial) 50 ML VIAL IVP ONE ×2 (09:01→17:23)
[2021-02-06] MEDS: Metoprolol XL (24 HR) Succ 50 MG TAB.ER.24H PO SCH ×2 (09:37→21:37)
[2021-02-06] MEDS: Insulin LISPRO 300 UNITS/3 ML VIAL SUBQ SCH ×3 (09:42→18:12)
[2021-02-06] MEDS: Amiodarone Premix 360 MG/200 ML BAG IVC SCH (10:54)
[2021-02-06] MEDS: Levalbuterol Neb 1.25 MG/3 ML IH SCH ×2 (11:04→20:50)
[2021-02-06] MEDS ORDERED: Metoprolol XL (24 HR) Succ 50 MG TAB.ER.24H PO ONE (18:15)
[2021-02-07] MEDS: Amiodarone Premix 360 MG/200 ML BAG IVC SCH ×2 (00:24→14:09)
[2021-02-07 05:36] LABS: Basophils % 0.3 %; Eosinophils # 0.1 K/mcL (0.0-0.6); Eosinophils % 0.5 %; Hematocrit 38.1 % (37.5-50.1); Hemoglobin 11.8 g/dL (12.9-16.9); Immature Granulocytes % 1.2 % (0-4); Immature Platelets 7.9 % (1.1-6.1); Lymphocytes # 0.4 K/mcL (0.6-4.6); Lymphocytes % 2.8 %; Mean Corpuscular Hemoglobin 30.9 pg (28.0-33.3); Mean Corpuscular Volume 99.7 fL (83.0-100.0); Mean Platelet Volume 10.7 fL (9.4-12.4); Monocytes # 1.1 K/mcL (0.0-1.3); Monocytes % 8.1 %; Neutrophils # 11.5 K/mcL (1.6-8.9); Nucleated Red Blood Cells 0.6 /100 WBC (0); Red Blood Count 3.82 M/mcL (4.19-5.50); Red Cell Distribution Width 14.9 % (11.5-14.5); Segmented Neutrophils % 87.1 %; White Blood Count 13.2 K/mcL (4.3-11.1)
[2021-02-07 06:10] LABS: Platelet Count 78 K/mcL (140-400)
[2021-02-07 06:11] LABS: Platelet Estimate Slight Decrease (Normal)
[2021-02-07 07:58] LABS: Calcium 7.6 mg/dL (8.6-10.3); Magnesium 2.4 mg/dL (1.6-2.6); Phosphorous 7.1 mg/dL (2.7-4.5); Potassium 4.3 mEq/L (3.5-5.1)
[2021-02-07] MEDS: Levalbuterol Neb 1.25 MG/3 ML IH SCH ×2 (08:00→19:38)
[2021-02-07 09:23] LABS: INR 7.8; Prothrombin Time 85.5 Seconds (9.4-12.1)
[2021-02-07] MEDS: Metoprolol XL (24 HR) Succ 50 MG TAB.ER.24H PO SCH ×2 (10:06→20:35)
[2021-02-07] MEDS: Insulin LISPRO 300 UNITS/3 ML VIAL SUBQ SCH ×3 (10:07→17:29)
[2021-02-07] MEDS: Albumin 25% 25gram/100mL 25 GM/100 ML IV.SOLN IVPB SCH ×2 (12:53→20:32)
[2021-02-07] MEDS: *HR* Amiodarone 200 MG TABLET PO SCH ×2 (14:14→20:32)
[2021-02-07] MEDS: Budesonide/Formoterol 160/4.5 1 PUFF INH IH SCH (19:38)
[2021-02-08 01:15] LABS: Basophils % 0.4 %; Hematocrit 36.8 % (37.5-50.1); Hemoglobin 11.7 g/dL (12.9-16.9); Immature Granulocytes % 2.4 % (0-4); Immature Platelets 9.2 % (1.1-6.1); Lymphocytes # 0.2 K/mcL (0.6-4.6); Lymphocytes % 1.4 %; Mean Corpuscular HGB Conc 31.8 g/dL (31.6-35.5); Mean Corpuscular Hemoglobin 30.9 pg (28.0-33.3); Mean Corpuscular Volume 97.1 fL (83.0-100.0); Mean Platelet Volume 11.3 fL (9.4-12.4); Monocytes # 0.7 K/mcL (0.0-1.3); Monocytes % 6.9 %; Neutrophils # 9.4 K/mcL (1.6-8.9); Nucleated Red Blood Cells 1.3 /100 WBC (0); Red Blood Count 3.79 M/mcL (4.19-5.50); Segmented Neutrophils % 88.9 %; White Blood Count 10.6 K/mcL (4.3-11.1)
[2021-02-08 01:16] LABS: Platelet Count 51 K/mcL (140-400)
[2021-02-08 01:31] LABS: Calcium 7.3 mg/dL (8.6-10.3); Magnesium 2.4 mg/dL (1.6-2.6); Phosphorous 7.2 mg/dL (2.7-4.5); Potassium 3.9 mEq/L (3.5-5.1)
[2021-02-08 01:32] LABS: Prothrombin Time 99.6 Seconds (9.4-12.1)
[2021-02-08 01:33] LABS: INR 9.1
[2021-02-08] MEDS: Albumin 25% 25gram/100mL 25 GM/100 ML IV.SOLN IVPB SCH ×3 (04:01→20:22)
[2021-02-08] MEDS: Amiodarone Premix 360 MG/200 ML BAG IVC SCH (04:45)
[2021-02-08] MEDS: Budesonide/Formoterol 160/4.5 1 PUFF INH IH SCH ×2 (07:45→19:56)
[2021-02-08] MEDS: Levalbuterol Neb 1.25 MG/3 ML IH SCH ×2 (07:46→19:56)
[2021-02-08] MEDS: Insulin LISPRO 300 UNITS/3 ML VIAL SUBQ SCH ×4 (10:09→16:15)
[2021-02-08] MEDS: Aspirin 81 MG TAB.CHEW PO SCH (10:27)
[2021-02-08] MEDS: *HR* Amiodarone 200 MG TABLET PO SCH ×3 (10:28→20:22)
[2021-02-08] MEDS: Metoprolol XL (24 HR) Succ 25 MG TAB.ER.24H PO SCH (10:36)
[2021-02-08] MEDS ORDERED: *HR* Phytonadione 10 MG/ML AMPUL SQ ONE (13:52)
[2021-02-08 14:54] LABS: Hepatitis B Surface Antibody < 3.10 mIU/mL
[2021-02-08 15:04] LABS: Hepatitis B Surface Antigen Nonreactive (Nonreactive)
[2021-02-08] MEDS: Milrinone Premix 20 MG/100 ML 20 MG/100 ML BAG IVC SCH ×2 (15:33→21:14)
[2021-02-08] MEDS ORDERED: 0.9 % Sodium Chloride 250 ML ONE (16:02)
[2021-02-08] MEDS: Metoprolol XL (24 HR) Succ 50 MG TAB.ER.24H PO SCH (16:15)
[2021-02-08 21:47] LABS: Adenovirus Not Detected (Not Detect); Bordetella Pertussis Not Detected (Not Detect); Chlamydophila pneumoniae Not Detected (Not Detect); Coronavirus 229E Not Detected (Not Detect); Coronavirus HKU1 Not Detected (Not Detect); Coronavirus NL63 Not Detected (Not Detect); Coronavirus OC43 Not Detected (Not Detect); Human Metapneumovirus Not Detected (Not Detect); Human Rhinovirus/Enterovirus Not Detected (Not Detect); Influenza A Subtype 2009 H1 Not Detected (Not Detect); Influenza B Not Detected (Not Detect); Mycoplasma pneumoniae Not Detected (Not Detect); Parainfluenza Virus 1 Not Detected (Not Detect); Parainfluenza Virus 2 Not Detected (Not Detect); Parainfluenza Virus 3 DETECTED (Not Detect); Parainfluenza Virus 4 Not Detected (Not Detect); Respiratory Syncytial Virus Not Detected (Not Detect); SARS-CoV-2 Not Detected (Not Detect)
[2021-02-09] MEDS ORDERED: traZODone 50 MG TABLET PO ONE (00:07)
[2021-02-09] MEDS: Milrinone Premix 20 MG/100 ML 20 MG/100 ML BAG IVC SCH ×2 (04:24→07:24)
[2021-02-09] MEDS: Albumin 25% 25gram/100mL 25 GM/100 ML IV.SOLN IVPB SCH ×2 (04:25→10:50)
[2021-02-09 05:12] LABS: Basophils % 0.3 %; Hematocrit 33.3 % (37.5-50.1); Hemoglobin 10.7 g/dL (12.9-16.9); Immature Granulocytes % 2.4 % (0-4); Immature Platelets 7.9 % (1.1-6.1); Lymphocytes # 0.1 K/mcL (0.6-4.6); Lymphocytes % 0.9 %; Mean Corpuscular HGB Conc 32.1 g/dL (31.6-35.5); Mean Corpuscular Hemoglobin 31.4 pg (28.0-33.3); Mean Corpuscular Volume 97.7 fL (83.0-100.0); Mean Platelet Volume 10.7 fL (9.4-12.4); Monocytes # 0.6 K/mcL (0.0-1.3); Monocytes % 6.8 %; Neutrophils # 8.3 K/mcL (1.6-8.9); Nucleated Red Blood Cells 0.8 /100 WBC (0); Platelet Count 69 K/mcL (140-400); Red Blood Count 3.41 M/mcL (4.19-5.50); Red Cell Distribution Width 14.9 % (11.5-14.5); Segmented Neutrophils % 89.6 %; White Blood Count 9.3 K/mcL (4.3-11.1)
[2021-02-09 05:19] LABS: INR 3.5; Prothrombin Time 39.2 Seconds (9.4-12.1)
[2021-02-09 05:31] LABS: Anisocytosis 1+ (Not Present); Platelet Estimate Decreased (Normal)
[2021-02-09] MEDS ORDERED: Famotidine 20 MG TABLET PO ONE ×2 (05:32→06:00)
[2021-02-09 05:47] LABS: Blood Urea Nitrogen > 130 mg/dL (8-23); Calcium 7.4 mg/dL (8.6-10.3); Carbon Dioxide 30 mEq/L (23-29); Chloride 81 mEq/L (98-107); Glucose 276 mg/dL (70-105); Magnesium 2.7 mg/dL (1.6-2.6); Phosphorous 9.6 mg/dL (2.7-4.5); Potassium 3.9 mEq/L (3.5-5.1); Sodium 132 mEq/L (136-145); eGFR For African Americans 8 (> 60); eGFR For Non-African Americans 7 (> 60)
[2021-02-09 06:52] VITALS: TEMP 97
[2021-02-09] MEDS: Metoprolol XL (24 HR) Succ 25 MG TAB.ER.24H PO SCH (07:24)
[2021-02-09] MEDS: Aspirin 81 MG TAB.CHEW PO SCH (07:38)
[2021-02-09] MEDS: *HR* Amiodarone 200 MG TABLET PO SCH (07:38)
[2021-02-09] MEDS: Insulin LISPRO 300 UNITS/3 ML VIAL SUBQ SCH ×2 (07:38→11:38)
[2021-02-09] MEDS ORDERED: 0.9 % Sodium Chloride 250 ML IVC PRN (08:32)
[2021-02-09] MEDS ORDERED: 0.9 % Sodium Chloride 1,000 ML PRIME SCH (08:45)
[2021-02-09] MEDS ORDERED: Milrinone Premix 20 MG/100 ML 20 MG/100 ML BAG IVC SCH ×2 (08:53→09:54)
[2021-02-09] MEDS ORDERED: 0.9 % Sodium Chloride 250 ML IV ONE (08:54)
[2021-02-09] MEDS ORDERED: Norepinephrine 4 MG/254 ML IV.SOLN IVC SCH (09:45)
[2021-02-09] MEDS ORDERED: Heparin 1,000 UNITS/500 mL 500 ML ONE (09:51)
[2021-02-09 10:51] LABS: ABG Base Excess -1 mEq/L (-2 to 3); ABG HCO3 33 mEq/L (21-27); ABG Oxygen Saturation 89 % (95-98); ABG PCO2 118 mmHg (35-45); ABG PH 7.05 pH Units (7.32-7.45); ABG PO2 85 mmHg (85-104); ABG TCO2 36 mEq/L (20-26); Blood Gas Modality NIV
[2021-02-09] MEDS: Levalbuterol Neb 1.25 MG/3 ML IH SCH (11:08)
[2021-02-09] MEDS: Budesonide/Formoterol 160/4.5 1 PUFF INH IH SCH (11:08)
[2021-02-09 11:15] VITALS: O2SAT 97
[2021-02-09] MEDS ORDERED: *HR* LORazepam 2 MG/ML VIAL IVP PRN (11:44)
[2021-02-09] MEDS ORDERED: Morphine Sulfate 2 MG/ML SYRINGE IVP PRN (11:44)
[2021-02-09 11:47] VITALS: BP 115/101; PULSE 98
[2021-02-12] MEDS ORDERED: Patient Taking Own Medication 1 EACH SQ SCH (14:47)
== END 2021-02-09 15:45 | disposition expired | DRG 291 ==
LOC: 3NENU → SUATTDRO 21:22 → 2NNU 02-08 14:49
PROVIDERS: ADMIT Internal Medicine; ATTEND Family Medicine